=== PATIENT | female | born 1990 | race Two or more races ===

== ENCOUNTER 2018-08-13 15:32 | Emergency (ER) | payer MEDICAID ==
[~2018-08-13] VITALS: Ht 162.6 cm; Wt 75.7 kg
[~2018-08-13 15:32] MED LIST: BENADRYL25 MG ORAL; IBUPROFEN600 MG ORAL; PREDNISONE20 MG ORAL
[2018-08-13] MEDS ORDERED: INVOKANA300 MG PO (15:43)
[2018-08-13 15:53] VITALS: BP 140/90
--- NOTE | 2018-08-13 15:59 | Emergency Room Report ---
History of Present Illness General Chief Complaint: Dyspnea/Respdistress Source: Patient Present Illness HPI 27-year-old female patient presents the ER complaining shortness of breath. Reports symptoms of breath present for "a long time". Reports was seen by her primary care provider and due to length of symptoms was finally given a referral to pulmonology. Reports history of being diagnosed with asthma, states she uses her inhaler for her symptoms. Denies chest pain. Denies abdominal pain. Denies calf pain. Denies recent travel. Denies taking control medications. Denies smoking. Denies recent periods of immobilization. Denies IV drug use. Denies history of cancer. Denies history of heart disease. Denies history of heart attack or CHF. Patient speaking full sentences during interview. Recently diagnosed with diabetes, states stopped taking her medication due to concern over side effects and how that may relate shortness of breath. Reports shortness of breath symptoms have been present prior to diabetes medications. Denies needing breathing treatment at this time. Also reports history of anxiety, states has not been given any medication for anxiety symptoms. Reports feeling of stress at home. Reports symptoms usually better when she is not as stressed out. Allergies: Coded Allergies: No Known Allergies (Unverified , 10/06/15) Patient History Past Medical History: see triage record Last Menstrual Period: 08/04/18 Reviewed Nursing Documentation: PMH: Agreed; PSxH: Agreed Nursing Documentation-PMH Past Medical History: No History, Except For Hx Diabetes: Yes Review of Systems All Other Systems: negative except mentioned in HPI Physical Exam Vital Signs Date Time Temp Pulse Resp B/P (MAP) Pulse Ox O2 Delivery O2 Flow Rate FiO2 08/13/18 15:39 98.1 95 18 140/90 99 Room Air Sp02 EP Interpretation: reviewed, normal General Appearance: well appearing, no apparent distress, alert, GCS 15, non- toxic Head: normocephalic, atraumatic Eyes: bilateral eye normal inspection, bilateral eye PERRL ENT: hearing grossly normal, normal pharynx, no angioedema, normal voice, uvula midline, moist mucus membranes Neck: full range of motion Respiratory: lungs clear, normal breath sounds, no rhonchi, no respiratory distress, no accessory muscle use, no wheezing, speaking full sentences Cardiovascular #1: regular rate, rhythm, no edema Gastrointestinal: non tender, soft, no mass, non-distended, no guarding, no rebound Genitourinary: no CVA tenderness Musculoskeletal: back normal, digits/nails normal, gait/station normal, normal range of motion, non-tender Neurologic: alert, oriented x3, responsive, motor strength/tone normal, sensory intact Psychiatric: mood/affect normal Skin: no rash Lymphatic: no adenopathy Medical Decision Making PA Attestation Dr. Bazzi is my supervising Physician whom patient management has been discussed with. Diagnostic Impression: Primary Impression: Feeling stressed out Additional Impression: Shortness of breath ER Course Pt. presents to the ED c/o shortness of breath and "feeling stressed out." Ddx considered but are not limited to asthma, viral URI, PE, CHF, stress, anxiety. No tachycardia, no hemoptysis, no calf pain, no recent travel, low suspicion for PE per [facility] criteria. Vital signs: are WNL, pt. is afebrile ER COURSE: Lungs clear to auscultation, no wheezes rhonchi or rales. CXR negative for acute disease, no signs of CHF. Pulse ox of 95%, vitals WNL, patient speaking full sentences, lungs clear to auscultation, do not believe patient requires cardiopulmonary workup at this time. Follow-up with primary care provider to discuss diabetes medications. Instruct patient follow-up primary care provider and pulmonology specialist at scheduled appointment. ER precautions given. Provide patient with contact information for mental health urgent care. Advised on stress reduction techniques. Discussed referral with PCP to mental health professional. DISCHARGE: At this time pt is stable for d/c to home. Patient is resting comfortably, in no acute distress, nontoxic appearing, talking without difficulty. Patient to take medications as instructed Will provide with patient care instructions and any necessary prescriptions. Care plan and follow-up instructions provided. Patient instructed to follow-up with primary care provider in 3 - 5 days. Patient questions asked and answered. Patient reports understanding and agreement to treatment plan. ER precautions given. Patient instructed to return to ER immediately for any new or worsening of symptoms including but not limited to increasing SOB, persistent fever, chest pain, intractable vomiting. - Please note that this Emergency Department Report was dictated using [employer] machine technology software, occasionally this can lead to erroneous entry secondary to interpretation by the dictation equipment. Chest X-Ray Diagnostic Results Chest X-Ray Diagnostic Results : Chest X-Ray Ordered: Yes # of Views/Limited/Complete: 1 View Indication: Chest Pain EP Interpretation: Yes PA Xray: Interpretation reviewed, by supervising MD, and agrees with findings. Interpretation: no consolidation, no effusion, no pneumothorax, no acute cardiopulmonary disease Impression: No acute disease MICKEY [place] Text Ilya Haile PA-C Last Vital Signs Date Time Temp Pulse Resp B/P (MAP) Pulse Ox O2 Delivery O2 Flow Rate FiO2 08/13/18 15:53 95 18 Room Air 08/13/18 15:53 98.1 140/90 99 Status: improved Disposition: HOME, SELF-CARE Condition: Stable Patient Instructions: Generalized Anxiety Disorder, Shortness of Breath, Easy- to-Read, Stress and Stress Management Additional Instructions: Followup with primary care provider in 3 -5 days. Follow-up with shingle carrier as scheduled appointment. Discussed referral to cardiology and cardiac stress testing as needed. Follow-up with mental health professional. Discussed anxiety and stress reduction techniques. Follow-up with mental health urgent care. Take medications as directed. Patient questions asked and answered. ER precautions given, patient instructed to return to ER immediately for any new or worsening of symptoms. Prem Haile Aug 13, 2018 15:59
[2018-08-13 17:39] VITALS: BP 140/90
--- NOTE | 2018-08-13 18:19 | Diagnostic Imaging Report ---
EXAM: XR Chest, 1 View CLINICAL HISTORY: PAIN TECHNIQUE: Frontal view of the chest. COMPARISON: 02/02/16. FINDINGS: Lungs: Unremarkable. No consolidation. Pleural space: Unremarkable. No pneumothorax. Heart: Unremarkable. No cardiomegaly. Mediastinum: Unremarkable. Bones/joints: Unremarkable. IMPRESSION: Normal chest x-ray.
== END 2018-08-13 17:01 | disposition home or self-care (01) ==
LOC: EMR 16:43
DX: F43.9 Reaction to severe stress, unspecified (principal); R06.02 Shortness of breath; E11.9 Type 2 diabetes mellitus without complications
CPT/HCPCS: 71045; 99283